=== PATIENT | female | born 1955 | race Caucasian/White ===

== ENCOUNTER 2017-01-10 12:46 | Emergency (ER) | payer BC ==
[2017-01-10 11:39] LABS: PARTIAL THROMBO TIME 30.7 SEC (22.5-37.2); PROTIME (NOT ORD) 13.1 SEC (12.0-14.5)
[2017-01-10 11:41] LABS: BASOPHILS 0.5 %; BASOPHILS ABSOLUTE 0.05 10/3/uL (0.0-0.16); EOSINOPHILS 1.9 %; EOSINOPHILS ABSOLUTE 0.19 10/3/uL (0.0-0.53); ER CBC TAT 0 Hrs 13 Mins; HEMATOCRIT 40.3 % (36.0-48.0); HEMOGLOBIN 13.8 g/dL (12.0-16.0); IMMATURE GRANULOCYTES 0.2 %; IMMATURE GRANULOCYTES ABSOLUTE 0.02 10/3/uL (0.0-0.11); LYMPHOCYTES 22.4 %; LYMPHOCYTES ABSOLUTE 2.27 10/3/uL (0.67-4.30); MEAN CORPUS HGB CONC 34.2 g/dL (32.0-36.0); MEAN CORPUSCULAR HEMOGLOB 31.4 pg (26.0-34.0); MEAN CORPUSCULAR VOLUME 91.8 fL (80-100); MEAN PLATELET VOLUME 10.2 fL (9.2-13.0); MONOCYTES 10.2 %; MONOCYTES ABSOLUTE 1.04 10/3/uL (0.21-1.20); NEUTROPHILS 64.8 %; NEUTROPHILS ABSOLUTE 6.58 10/3/uL (2.02-8.40); PLATELET COUNT 387 10/3/uL (150-400); RBC DISTRIBUTION WIDTH 12.9 % (12.0-16.0); RED CELL COUNT 4.39 10/6/uL (4.0-5.6); WHITE BLOOD CELLS 10.2 10/3/uL (4.5-10.5)
[2017-01-10 11:42] LABS: MANUAL DIFF NO %
[2017-01-10 11:53] LABS: BUN (BLOOD UREA NITROGEN) 21 MG/DL (6-23); CALCIUM, SERUM 8.9 MG/DL (8.5-10.4); CHEST PAIN PROFILE TAT 0 Hrs 25 Mins; CHLORIDE, SERUM 104 MMOL/L (96-112); CO2 (CARBON DIOXIDE) 29 MMOL/L (24-34); GFR AFRICAN AMERICAN 79 ML/MIN (>=60); GFR NON AFRICAN AMERICAN 69 ML/MIN (>=60); GLUCOSE, SERUM 97 MG/DL (60-99); POTASSIUM, SERUM 4.1 MMOL/L (3.5-5.3); SODIUM, SERUM 142 MMOL/L (135-148); TROPONIN I <0.02 NG/ML (<0.05)
== END 2017-01-10 13:14 | disposition home or self-care (01) ==
LOC: ER 12:46
PROVIDERS: Emergency Medicine
DX: I48.91 Unspecified atrial fibrillation (principal); Z88.1 Allergy status to other antibiotic agents
CPT/HCPCS: 71010; 80048; 83735; 84484; 85025; 85610; 85730; 93005; 99285; A9270-GY